=== PATIENT | female | born 2000 ===

== ENCOUNTER 2019-02-28 17:09 | Outpatient (REF) | payer BC, SELFPAY ==
[2019-02-28 19:01] LABS: HCT 40.3 % (36.0-46.0); HGB 13.6 g/dL (12.0-15.5); Mean Corp. HGB Concentration 33.7 g/dL (32.0-36.0); Mean Corpuscular Hemoglobin 28.3 pg (27.0-33.0); Mean Platelet Volume 9.9 fL (8.0-11.0); Platelet Count 448 x1000/uL (130-400); RBC Distribution Width 13.1 % (11.7-14.6); White Blood Cell Count 12.16 k/cumm (4.4-10.8)
[2019-02-28 19:34] LABS: TSH 3.17 uIU/mL (0.358-3.74)
== END 2019-02-28 17:29 ==
LOC: NCHCN 17:09
PROVIDERS: PCP Physician Assistant; Visit Provider Nurse Practitioner Family
DX: R59.9 Enlarged lymph nodes, unspecified (principal)
CPT/HCPCS: 85027; 84443